=== PATIENT | female | born 1950 | race Two or more races ===

== ENCOUNTER 2020-01-27 08:38 | Outpatient (CLI) | payer OTHER | END 2020-01-27 08:43 | disposition home or self-care (01) | LOC: RAD 08:38 | DX: S62.617A Displaced fracture of proximal phalanx of left little finger, initial encounter for closed fracture (principal); M79.642 Pain in left hand; M25.562 Pain in left knee ==

== ENCOUNTER 2020-02-03 09:46 | Outpatient (CLI) | payer OTHER | END 2020-02-03 10:01 | disposition home or self-care (01) | LOC: RAD 09:46 | DX: M25.562 Pain in left knee (principal); M17.12 Unilateral primary osteoarthritis, left knee; S62.617A Displaced fracture of proximal phalanx of left little finger, initial encounter for closed fracture ==